=== PATIENT | female | born 1975 | race African-American/Black ===

== ENCOUNTER 2023-05-31 12:30 | Emergency (ER) | payer MEDICAID ==
[~2023-05-31] VITALS: Ht 165.1 cm; Wt 100.0 kg
[2023-05-31 12:43] VITALS: O2SAT 100
[2023-05-31 15:48] LABS: BASOPHILS % 0.7 % (0.0-2.0); EOSINOPHILS % 1.3 % (0.0-5.0); HEMATOCRIT. 37.9 % (36.0-48.0); HEMOGLOBIN. 12.5 g/dL (12.0-16.0); LYMPHOCYTES % 26.1 % (20.0-50.0); MEAN CORPUSCULAR HEMOGLOBIN 30.8 pg (28.0-32.0); MEAN CORPUSCULAR HGB CONC 32.9 g/dL (31.0-37.0); MEAN CORPUSCULAR VOLUME 93.7 fL (81.0-99.0); MEAN PLATELET VOLUME 8.3 fl (7.4-10.4); MONOCYTES % 8.5 % (2.0-8.0); NEUTROPHILS % 63.4 % (40.0-76.0); PLATELET 264 x1000/uL (130-400); RED BLOOD CELL COUNT 4.04 mill/uL (4.2-5.4); RED CELL DISTRIBUTION WIDTH 13.4 % (11.6-14.6); WHITE BLOOD COUNT 10.3 x1000/uL (4.5-11.0)
[2023-05-31 16:04] LABS: ALANINE AMINOTRANSFERASE 14 IU/L (10-49); ALBUMIN 4.6 g/dL (3.2-4.8); ASPARTATE AMINOTRANSFERASE 18 IU/L (<34); BILIRUBIN TOTAL 0.4 mg/dL (0.1-1.0); CALCIUM 8.9 mg/dL (8.7-10.4); CARBON DIOXIDE 26 mEq/L (21-32); CHLORIDE 113 mEq/L (98-107); CREATININE 0.8 mg/dL (0.6-1.0); GLUCOSE 92 mg/dL (70-105); POTASSIUM 3.9 mEq/L (3.5-5.1); SODIUM 140 mEq/L (136-145); UREA NITROGEN BLOOD 8 mg/dL (9-23)
[2023-05-31] MEDS: KETOROLAC 15MG/ML VIAL IM ONE (16:11)
[2023-05-31] MEDS: CYCLOBENZAPRINE 10MG TABLET PO ONE (16:11)
[2023-05-31] MEDS ORDERED: NAPR-681 MT (16:30)
[2023-05-31] MEDS ORDERED: CYCL10TA21 MT (16:30)
[2023-05-31 16:53] VITALS: BP 138/78; PULSE 77; RESP 18; TEMP 98.4
== END 2023-05-31 16:55 | disposition home or self-care (01) ==
LOC: ER 12:54
DX: M79.602 Pain in left arm (principal); G62.9 Polyneuropathy, unspecified
CPT/HCPCS: 99284; 80053; 81025; 85025; 36415; 73030; 73080; 73110; 96372; J1885